=== PATIENT | male | born 1960 | race Caucasian/White ===

== ENCOUNTER → 2020-05-05 11:06 | Outpatient (BNVA) | payer OTHER, SELFPAY | PROVIDERS: Visit Provider Internal Medicine | DX: Z76.89 Persons encountering health services in other specified circumstances (principal) ==

== ENCOUNTER 2020-05-10 08:11 | Outpatient (REF) | payer OTHER, SELFPAY ==
[2020-05-10 09:54] LABS: Hematocrit 47.8 % (42-52); Hemoglobin 16.1 g/dl (14.0-18.0)
[2020-05-10 11:37] LABS: Free T4 (Free Thyroxine) 1.13 ng/dL (0.71-1.85); Prostate Specific Antigen 1.33 ng/mL (<0.05-4.0); Thyroid Stimulating Hormone 1.45 mIU/mL (0.32-4.0); Vitamin D 25-OH Total 27.2 ng/mL (>30)
[2020-05-11 12:51] LABS: HCG Tumor Marker <3 mIU/mL (<5); Triiodothyronine T3 Total 134 ng/dL (76-181)
[2020-05-12 01:37] LABS: Sex Hormone Binding Globulin 25 nmol/L (22-77)
[2020-05-12 08:57] LABS: Follicle Stimulating Hormone 4.7 mIU/mL (1.6-8.0); Lutenizing Hormone 4.5 mIU/mL (1.6-15.2); Prolactin 5.7 ng/mL (2.0-18.0)
[2020-05-14 23:37] LABS: Estradiol, Ultrasensitive 40 pg/mL
[2020-05-15 00:47] LABS: Estradiol Ultra Sensitive 41 pg/mL (< OR = 29)
[2020-05-15 13:31] LABS: Testosterone, Free 68.8 pg/mL (35.0-155.0); Testosterone, Total 339 ng/dL (250-1100)
== END 2020-05-10 08:12 | disposition home or self-care (01) ==
LOC: HO.LAB 08:11
PROVIDERS: PCP Physician Assistant; Visit Provider Internal Medicine
DX: R79.89 Other specified abnormal findings of blood chemistry (principal); E04.9 Nontoxic goiter, unspecified
CPT/HCPCS: 36415; 82306; 82670; 82672; 83001; 83002; 84146; 84153; 84270; 84402; 84403; 84439; 84443; 84480; 84702; 85014; 85018

== ENCOUNTER 2020-06-07 16:05 | Outpatient (REF) | payer OTHER, SELFPAY ==
[2020-06-07 17:12] LABS: Alanine Aminotransferase 61 U/L (0-40); Albumin Level 4.5 g/dL (3.5-5.0); Alkaline Phosphatase 58 U/L (39-117); Anion Gap 14 (12-20); Aspartate Amino Transferase 34 U/L (5-37); Bilirubin Total 0.4 mg/dL (0.0-1.0); Blood Urea Nitrogen 16 mg/dL (9-16); Calcium 9.3 mg/dL (8.4-10.2); Carbon Dioxide 27 mmol/L (22-29); Chloride 101 mmol/L (96-108); Cholesterol 198 mg/dL; Estimated Glomerular Filt Rate > 60; Glucose Fasting 82 mg/dL (60-99); HDL Cholesterol 48 mg/dL; LDL Cholesterol Calculated 88 mg/dl; Potassium 4.2 mmol/l (3.3-5.1); Sodium 138 mmol/L (135-145); Total Protein 7.1 g/dL (6.5-8.0); Triglycerides 311 mg/dL
[2020-06-07 17:24] LABS: TSH reflex Free T4 2.07 mIU/mL (0.32-4.0)
== END 2020-06-07 16:06 | disposition home or self-care (01) ==
LOC: HO.LAB 16:05
PROVIDERS: Internal Medicine; PCP Physician Assistant; Visit Provider Internal Medicine Medical Oncology
DX: E78.2 Mixed hyperlipidemia (principal); R79.89 Other specified abnormal findings of blood chemistry
CPT/HCPCS: 80053; 80061; 84443

== ENCOUNTER 2020-06-09 08:05 | Outpatient (REF) | payer OTHER, SELFPAY ==
--- NOTE | 2020-06-09 08:06 | CT_ITS ---
EXAMINATION: CT ABDOMEN AND PELVIS WITHOUT AND WITH CONTRAST CLINICAL INFORMATION: Evaluate liver and adrenal glands COMPARISON: Previous abdominal ultrasound February 2012 TECHNIQUE: Multidetector volumetric imaging was performed of the abdomen and pelvis before and after the IV administration of 85 mL of Omnipaque 350 intravenous contrast. Sagittal and coronal reformatted images were obtained on the technologist's workstation. This CT examination was performed using dose optimization techniques as appropriate, variously including the following: *Automated exposure control *Adjustment of mA and/or kV according to patient size (this includes techniques or standardized protocols for targeted exams where dose is matched to indication/reason for exam; i.e. extremities or head) *Use of iterative reconstruction technique DLP: 07/16/2008 mGy-cm FINDINGS: LUNG BASES: There are 2 small 2 mm left lower lobe pulmonary nodules. The lung bases are otherwise clear. LIVER, GALLBLADDER, AND BILIARY TREE: The liver is low in attenuation suggestive of fatty infiltration. No focal liver lesion is seen. The liver is normal in size and shape. There is a gallstone in the gallbladder. There is no biliary duct dilatation. PANCREAS: Unremarkable SPLEEN: Unremarkable ADRENAL GLANDS: Unremarkable KIDNEYS AND URETERS: There are bilateral renal stones. There are 5 stones seen in the right kidney, largest measuring 3 x 4 mm in the lower pole. There are 3 stones seen in the left kidney, largest measuring 3 mm in the lower pole. There is a 5 mm low-attenuation lesion in the upper pole of the right kidney. This is is not well-seen precontrast difficult to characterize due to small size but probably represents a cyst. The kidneys are otherwise unremarkable. BLADDER: Unremarkable GASTROINTESTINAL TRACT: There is mild diverticulosis of the colon. The small and large bowel are otherwise unremarkable. The appendix is unremarkable. ABDOMINAL WALL: No significant hernia is appreciated. LYMPH NODES: Normal VASCULAR: There is evidence of mild atherosclerotic disease. No aneurysm is seen. PELVIC VISCERA: Unremarkable OSSEOUS STRUCTURES: There are mild degenerative changes of the spine. CT/CT abdomen pelvis wo/w con IMPRESSION: Fatty liver. Small gallstone in the gallbladder. Bilateral renal stones. Normal-appearing adrenal glands.
--- NOTE | 2020-06-09 08:18 | US_ITS ---
EXAMINATION: US THYROID CLINICAL INFORMATION: Nontoxic goiter, unspecified. COMPARISON: None TECHNIQUE: Linear transducer boateng-scale and color Doppler examination with attention to the region of the thyroid. FINDINGS: SIZE: Measurements of the thyroid lobes and nodules are given in sagittal, anteroposterior and transverse dimensions respectively. Right Thyroid Lobe: 4.7 x 2.0 x 2.3 cm, volume 11.3 mL. Parenchyma: The gland echotexture is homogeneous. Thyroid vascularity is normal. Left Thyroid Lobe: 4.8 x 1.9 x 1.7 cm, volume 8.1 mL. Parenchyma: The gland echotexture is homogeneous. Thyroid vascularity is normal. Isthmus: 0.2 cm in maximum AP dimension. RIGHT THYROID LOBE: No nodules. ISTHMUS: No nodules. LEFT THYROID LOBE: No nodules. NODES: No lymphadenopathy is seen in the tissue surrounding the thyroid gland. US/US thyroid IMPRESSION: Slightly enlarged right lobe otherwise unremarkable exam.
--- NOTE | 2020-06-09 09:17 | US_ITS ---
EXAMINATION: US SCROTUM CLINICAL INFORMATION: Other specified abnormal findings of blood chemistry. COMPARISON: None TECHNIQUE: A sonogram of the scrotum was performed assessing boateng-scale appearance and color Doppler flow. Spectral Doppler analysis of the arterial and venous flow were performed in the testes bilaterally. FINDINGS: RIGHT: Right testicle measures 3.4 x 2.3 x 2.7 cm, volume 11.0 mL. No focal testicular parenchymal lesions are visualized. Spectral Doppler analysis of the arterial and venous flow is normal in the right testis. Right epididymal head is normal in size. There is a right appendix epididymis. No right hydrocele or varicocele is seen. Right epididymal Doppler flow is normal. LEFT: Left testicle measures 3.3 x 1.8 x 2.7 cm, volume 8.4 mL. No focal testicular parenchymal lesions are visualized. Spectral Doppler analysis of the arterial and venous flow is normal in the left testis. There is a 1.7 x 1.1 x 0.9 cm left epididymal head cyst. No left hydrocele or varicocele is seen. Left epididymal Doppler flow is normal. US/US scrotum IMPRESSION: 1.7 x 1.1 x 0.9 cm left epididymal head cyst.
[2020-06-09] MEDS: iohexoL 350 MG/ML 100 ML INFUS..BTL 85 ML IV (09:38)
== END 2020-06-09 08:06 | disposition home or self-care (01) ==
LOC: HO.CT 08:05
PROVIDERS: PCP Physician Assistant; Visit Provider Internal Medicine
DX: E04.9 Nontoxic goiter, unspecified (principal); R79.89 Other specified abnormal findings of blood chemistry
CPT/HCPCS: 74178; 76536; 76870; Q9967

== ENCOUNTER → 2020-06-17 08:02 | Outpatient (BNVA) | payer OTHER, SELFPAY | PROVIDERS: PCP Physician Assistant; Referring Provider Physician Assistant; Visit Provider Internal Medicine | DX: Z76.89 Persons encountering health services in other specified circumstances (principal) ==

== ENCOUNTER 2020-06-21 08:27 | Outpatient (REF) | payer OTHER, SELFPAY ==
[2020-06-21 10:31] LABS: Albumin Level 4.4 g/dL (3.5-5.0); Blood Urea Nitrogen 12 mg/dL (9-16); Calcium 9.5 mg/dL (8.4-10.2); Estimated Glomerular Filt Rate > 60
[2020-06-21 10:46] LABS: Vitamin D 25-OH Total 24.2 ng/mL (>30)
[2020-06-22 17:53] LABS: Sex Hormone Binding Globulin 25 nmol/L (22-77)
[2020-06-22 22:38] LABS: Calcium (PTHI) 9.5 mg/dL (8.6-10.3); PTHI 23 pg/mL (14-64)
[2020-06-23 13:27] LABS: Alpha Fetoprotein 3.1 ng/mL (<6.1)
[2020-06-25 10:42] LABS: Testosterone, Free 49.5 pg/mL (35.0-155.0); Testosterone, Total 229 ng/dL (250-1100)
[2020-06-25 22:53] LABS: Estradiol Ultra Sensitive 32 pg/mL (< OR = 29)
[2020-06-29 16:47] LABS: Estrogen 216.6 pg/mL (60-190)
[2020-06-30 22:58] LABS: Estradiol Free 0.61 pg/mL; Estradiol, Ultrasensitive 27 pg/mL
== END 2020-06-21 08:28 | disposition home or self-care (01) ==
LOC: HO.LAB 08:27
PROVIDERS: PCP Physician Assistant; Visit Provider Internal Medicine
DX: N20.0 Calculus of kidney (principal); R79.89 Other specified abnormal findings of blood chemistry; N50.89 Other specified disorders of the male genital organs; E55.9 Vitamin D deficiency, unspecified
CPT/HCPCS: 82040; 82105; 82306; 82310; 82565; 82670; 82672; 83970; 84100; 84270; 84402; 84403; 84520

== ENCOUNTER → 2020-06-23 08:48 | Outpatient (BNVA) | payer OTHER, SELFPAY | PROVIDERS: PCP Physician Assistant; Visit Provider Urology | DX: Z76.89 Persons encountering health services in other specified circumstances (principal) ==

== ENCOUNTER 2020-06-25 09:01 | Outpatient (REF) | payer OTHER, SELFPAY ==
[2020-06-25 12:06] LABS: Total Volume 24 Hour Urine 825 mL
[2020-06-26 17:33] LABS: Calcium, 24 Hr Urine 123 mg/24 h; Calcium/Creatinine Ratio 121 mg/g creat (30-210); Creatinine 24Hr Urine 1.01 g/24 h (0.50-2.15)
== END 2020-06-25 09:02 | disposition home or self-care (01) ==
LOC: HO.LNP 09:01
PROVIDERS: Visit Provider Internal Medicine
DX: N20.0 Calculus of kidney (principal)
CPT/HCPCS: 82340; 82570

== ENCOUNTER → 2020-07-15 08:59 | Outpatient (BNVA) | payer OTHER, SELFPAY | PROVIDERS: PCP Physician Assistant; Visit Provider Internal Medicine | DX: Z13.89 Encounter for screening for other disorder (principal) ==

== ENCOUNTER → 2020-07-22 14:34 | Outpatient (BNVA) | payer OTHER, SELFPAY | PROVIDERS: PCP Physician Assistant; Visit Provider Internal Medicine | DX: Z76.89 Persons encountering health services in other specified circumstances (principal) ==

== ENCOUNTER 2020-09-20 07:42 | Outpatient (REF) | payer OTHER, SELFPAY ==
[2020-09-20 09:15] LABS: Alanine Aminotransferase 72 U/L (0-40); Albumin Level 4.5 g/dL (3.5-5.0); Alkaline Phosphatase 65 U/L (39-117); Anion Gap 13 (12-20); Aspartate Amino Transferase 36 U/L (5-37); Bilirubin Total 0.5 mg/dL (0.0-1.0); Blood Urea Nitrogen 17 mg/dL (9-16); Carbon Dioxide 30 mmol/L (22-29); Chloride 102 mmol/L (96-108); Estimated Glomerular Filt Rate > 60; Glucose Random 95 mg/dL (60-115); Potassium 4.8 mmol/L (3.3-5.1); Sodium 140 mmol/L (135-145); Total Protein 7.1 g/dL (6.5-8.0)
[2020-09-20 09:37] LABS: Vitamin D 25-OH Total 30.6 ng/mL (>30)
[2020-09-23 12:27] LABS: Sex Hormone Binding Globulin 31 nmol/L (22-77)
[2020-09-25 21:27] LABS: Estradiol Ultra Sensitive 37 pg/mL (< OR = 29)
[2020-09-26 11:21] LABS: Testosterone, Free 47.2 pg/mL (35.0-155.0); Testosterone, Total 299 ng/dL (250-1100)
[2020-09-30 00:06] LABS: Estradiol Free 0.75 pg/mL; Estradiol, Ultrasensitive 36 pg/mL
== END 2020-09-20 07:43 | disposition home or self-care (01) ==
LOC: HO.LAB 07:42
PROVIDERS: PCP Physician Assistant; Visit Provider Internal Medicine
DX: R79.89 Other specified abnormal findings of blood chemistry (principal); E55.9 Vitamin D deficiency, unspecified
CPT/HCPCS: 36415; 80053; 82306; 82670; 82672; 82681; 84270; 84402; 84403

== ENCOUNTER → 2020-10-21 11:13 | Outpatient (BNVA) | payer OTHER, SELFPAY | PROVIDERS: PCP Physician Assistant; Visit Provider Internal Medicine ==

== ENCOUNTER 2020-10-22 08:04 | Outpatient (REF) | payer OTHER, SELFPAY ==
[2020-10-22 09:05] LABS: Hematocrit 47.4 % (42-52); Hemoglobin 16.2 g/dl (14.0-18.0); Mean Corpuscular HGB Conc 34.2 g/dl (31.0-36.0); Mean Corpuscular Hemoglobin 29.3 pg (27.0-33.0); Mean Corpuscular Volume 85.9 fL (80-98); Mean Platelet Volume 8.8 fL (9.4-12.4); Platelet Count 253 X10*3/uL (160-400); Red Blood Count 5.52 X10*6/uL (4.60-5.80); Red Cell Distribution Width 12.7 % (11.0-16.0); White Blood Count 5.9 X10*3/uL (4.8-10.8)
[2020-10-22 09:43] LABS: Alanine Aminotransferase 95 U/L (0-40); Albumin Level 4.6 g/dL (3.5-5.0); Alkaline Phosphatase 61 U/L (39-117); Anion Gap 13 (12-20); Aspartate Amino Transferase 61 U/L (5-37); Bilirubin Total 0.2 mg/dL (0.0-1.0); Blood Urea Nitrogen 13 mg/dL (9-16); Calcium 9.6 mg/dL (8.4-10.2); Carbon Dioxide 30 mmol/L (22-29); Chloride 101 mmol/L (96-108); Cholesterol 189 mg/dL; Estimated Glomerular Filt Rate > 60; Glucose Fasting 100 mg/dL (60-99); HDL Cholesterol 52 mg/dL; LDL Cholesterol Calculated 103 mg/dl; Potassium 4.8 mmol/L (3.3-5.1); Sodium 139 mmol/L (135-145); Total Protein 7.2 g/dL (6.5-8.0); Triglycerides 173 mg/dL
[2020-10-22 10:04] LABS: Prostate Specific Antigen Scr 1.31 ng/mL (<0.05-4.0)
== END 2020-10-22 08:05 | disposition home or self-care (01) ==
LOC: HO.LAB 08:04
PROVIDERS: PCP Physician Assistant; Visit Provider Physician Assistant
DX: I10 Essential (primary) hypertension (principal); E78.2 Mixed hyperlipidemia; Z12.5 Encounter for screening for malignant neoplasm of prostate
CPT/HCPCS: 36415; 80053; 80061; 84153; 84443; 85027

== ENCOUNTER 2020-12-01 08:40 | Outpatient (REF) | payer OTHER, SELFPAY ==
--- NOTE | ~2020-12-01 | US_ITS ---
EXAMINATION: US RETROPERITONEAL LIMITED (RENAL ONLY) CLINICAL INFORMATION: Calculus of kidney. COMPARISON: CT abdomen and pelvis without and with contrast dated 06/09/2020 TECHNIQUE: Real-time imaging of the kidneys. FINDINGS: RIGHT KIDNEY: 11.2 x 5.4 x 6.0 cm (SAG x AP x TRV). The kidney is normal in size, contour, and echogenicity. Renal cortical thickness is normal. No focal parenchymal lesions or hydronephrosis. There is an echogenic stone in the midpole measuring 0.4 x 0.2 x 0.3 cm. An echogenic stone in the lower pole measures 0.6 x 0.3 x 0.7 cm. LEFT KIDNEY: 13.0 x 5.8 x 5.0 cm (SAG x AP x TRV). The kidney is normal in size, contour, and echogenicity. Renal cortical thickness is normal. No focal parenchymal lesions or hydronephrosis. There is an echogenic stone in the lower pole measuring 0.7 x 0.7 x 0.6 cm. There is an echogenic stone in the midpole measuring 0.3 x 0.2 x 0.4 cm. US/US renal BI IMPRESSION: Bilateral nonobstructive echogenic renal calculi. There is no hydronephrosis seen.
== END 2020-12-01 08:41 | disposition home or self-care (01) ==
LOC: HO.US 08:40
PROVIDERS: Visit Provider Urology
DX: N20.0 Calculus of kidney (principal)
CPT/HCPCS: 76775

== ENCOUNTER → 2021-02-18 08:54 | Outpatient (BNVA) | payer BC, SELFPAY | PROVIDERS: PCP Physician Assistant; Visit Provider Urology ==

== ENCOUNTER → 2021-03-02 08:31 | Outpatient (BNVA) | payer BC, SELFPAY | PROVIDERS: PCP Physician Assistant; Visit Provider Internal Medicine ==

== ENCOUNTER 2021-03-04 13:04 | Outpatient (REF) | payer BC, SELFPAY ==
--- NOTE | ~2021-03-04 | US_ITS ---
EXAMINATION: US VENOUS ULTRASOUND WITH DOPPLER LOWER EXTREMITY, LEFT CLINICAL INFORMATION: Left lower extremity pain and swelling COMPARISON: None TECHNIQUE: Ultrasound of the deep veins is performed from the hip to the calf with compression sonography and color and pulse Doppler assessment. Spectral analysis with color-flow imaging is performed. FINDINGS: There is normal venous compression and respiratory variation and augmented flow. The visualized common femoral vein, superficial femoral vein, profunda femoral vein, popliteal vein, and the trifurcation region shows no evidence of deep venous thrombosis. There is no significant popliteal fossa cyst. If the patient's symptoms persist, followup ultrasound in 5 days 7 days might be of value to exclude proximal propagation from a non-visualized calf vein. US/US venous duplex LE LT IMPRESSION: No DVT demonstrated in the left lower extremity.
== END 2021-03-04 13:05 | disposition home or self-care (01) ==
LOC: HO.HMGCX 13:04
PROVIDERS: PCP Physician Assistant; Visit Provider Physician Assistant
DX: M79.662 Pain in left lower leg (principal); M79.89 Other specified soft tissue disorders
CPT/HCPCS: 93971

== ENCOUNTER 2021-04-20 06:22 | Day surgery (SDC) | payer BC, SELFPAY ==
--- NOTE | 2021-03-15 09:33 | HO.ANESPROP2 ---
HPI - Anesthesia Eval Consult details Narrative: 60yo M for Left ESWL No prev ESWL on record PMFSH Active Problems Active Problems: All Active Problems (Updated 03/03/21 @ 09:36 by Scott Tejada PA-C) Left leg swelling (Acute) Left leg paresthesias (Acute) Transaminitis (Acute) Screening-pulmonary TB (Acute) Allergies (Acute) Lung nodules (Acute) Renal mass (Acute) Pulmonary nodule (Acute) Nephrolithiasis (Acute) Epididymal mass (Acute) HLD (hyperlipidemia) (Acute) MDD (major depressive disorder) (Acute) Goiter (Acute) Vitamin D deficiency (Acute) High serum estradiol (Acute) HTN (hypertension) (Acute) Past Medical History Medical History Allergies Depression Epididymal mass High serum estradiol HTN (hypertension) Lung nodules Nephrolithiasis Pulmonary nodule Renal mass Transaminitis Vitamin D deficiency Family History Family History (Updated 03/03/21 @ 09:22 by Dena Landaverde) Father Diabetes mellitus Mother No problems noted. Maternal Aunt Cancer Maternal Grandfather Prostate cancer Maternal Grandfather Substance use disorder Surgical History Surgical History Hx of basal cell carcinoma Hx of shoulder surgery Social History Social History Household Members: None Housing: House Alcohol intake: current Alcohol intake frequency: does not drink Patient Tobacco Use Status: Never used Tobacco e-Cigarette/Vaping Use: Never Used Second Hand Smoke Exposure: No service: No Current occupational status: employed Meds Allergies Allergy/AdvReac Type Severity Reaction Status Date / Time codeine Allergy Unknown Unknown Verified 03/03/21 09:28 Home Medications Medication Instructions Recorded Confirmed Last Taken Type omega-3 fatty acids 1,000 mg 1,000 mg PO DAILY 05/05/20 03/03/21 Unknown History capsule (Fish Oil Concentrate) multivitamin 1 tab PO DAILY 06/17/20 03/03/21 Unknown History flu vac qs 2019(4 yr up)CD(PF) ml IM 07/22/20 03/03/21 Unknown History rosuvastatin 20 mg tablet 20 mg PO DAILY tab 10/21/20 03/03/21 Unknown History loratadine 10 mg tablet (Claritin) 10 mg PO DAILY PRN 03/02/21 03/03/21 Unknown History Exam Exam Date and Time: March 15, 2021 0912 Pertinent Lab Results Pertinent Lab Results: Laboratory Tests 10/22/20 10/22/20 08:10 08:10 WBC 5.9 Hgb 16.2 Hct 47.4 Plt Count 253 Sodium 139 Potassium 4.8 Chloride 101 Carbon Dioxide 30 H BUN 13 Creatinine 1.08 Assessment and Plan Assessment Anesthesia Assessment: Chart Reviewed
[2021-04-14 13:35] VITALS: BMI 29.9
--- NOTE | 2021-04-19 11:00 | HO.ANESPROP2 ---
Documented by User: Latoya Campbell NP 04/19/21 11:01 HPI - Anesthesia Eval Consult details Narrative: 60yo M for Left ESWL No prev ESWL on record PMFSH Active Problems Active Problems: All Active Problems (Updated 04/14/21 @ 13:39 by Destini Goodman, RONEL) Goiter (Acute) MDD (major depressive disorder) (Acute) HLD (hyperlipidemia) (Acute) Screening-pulmonary TB (Acute) Left leg paresthesias (Acute) Left leg swelling (Acute) Annual physical exam (Acute) Obese (Acute) Transaminitis (Acute) Allergies (Acute) Lung nodules (Acute) Renal mass (Acute) Pulmonary nodule (Acute) Nephrolithiasis (Acute) Epididymal mass (Acute) Vitamin D deficiency (Acute) High serum estradiol (Acute) HTN (hypertension) (Acute) Past Medical History Medical History Allergies COVID-19 vaccine series completed Depression Epididymal mass Fatty liver Heart murmur High serum estradiol History of Amanda-Del Castillo virus infection HTN (hypertension) Lung nodules Nephrolithiasis Pulmonary nodule Renal calculi Renal mass Transaminitis Vitamin D deficiency Family History Family History Father Diabetes mellitus Mother No problems noted. Maternal Aunt Cancer Maternal Grandfather Prostate cancer Maternal Grandfather Substance use disorder Surgical History Surgical History H/O colonoscopy Hx of basal cell carcinoma Hx of shoulder surgery Social History Social History Household Members: None Housing: House Are you a primary critical care physician assistant to a significant other at home: No Do you presently have visiting nurse or other home services: No Alcohol intake: current Alcohol intake frequency: holidays/special occasions only Patient Tobacco Use Status: Never used Tobacco e-Cigarette/Vaping Use: Never Used Second Hand Smoke Exposure: No Use of substances other than those prescribed or required for medical reasons: No Have you been hit, kicked, punched, or otherwise hurt by someone within the past year? If so, by whom?: No Are you DNR?: No Advance Directives: No Advance Directives Information Provided: Yes (informational brochure mailed w/pre-op instructions per patient request) Advance Directives on File: No Recently lost weight without trying: No Nutrition Risks: No Nutritional Risk Poor oral hygiene: No service: No Current occupational status: employed Current occupation: [employer] Allergies Allergy/AdvReac Type Severity Reaction Status Date / Time codeine AdvReac Intermediate Vomiting Verified 04/14/21 13:35 Home Medications Medication Instructions Recorded Confirmed Last Taken Type omega-3 fatty acids 1,000 mg 1,000 mg PO DAILY 05/05/20 04/14/21 Unknown History capsule (Fish Oil Concentrate) multivitamin 1 tab PO DAILY 06/17/20 04/14/21 Unknown History flu vac qs 2019(4 yr up)CD(PF) ml IM 07/22/20 03/31/21 Unknown History rosuvastatin 20 mg tablet 20 mg PO QAM tab 10/21/20 04/14/21 Unknown History loratadine 10 mg tablet (Claritin) 10 mg PO DAILY PRN 03/02/21 04/14/21 Unknown History Exam Exam Date and Time: April 19, 2021 1100 Height,Weight and Vital Signs: Height 5 ft 5 in Weight 81.647 kg Assessment and Plan Assessment Anesthesia Assessment: Chart Reviewed Documented by User: Lily Muller MD 04/20/21 07:53 [facility] Past Medical History Medical History Allergies COVID-19 vaccine series completed Depression Epididymal mass Fatty liver Heart murmur High serum estradiol History of Amanda-Del Castillo virus infection HTN (hypertension) Lung nodules Nephrolithiasis Pulmonary nodule Renal calculi Renal mass Transaminitis Vitamin D deficiency Family History Family History Father Diabetes mellitus Mother No problems noted. Maternal Aunt Cancer Maternal Grandfather Prostate cancer Maternal Grandfather Substance use disorder Family history of problems with anesthesia: No Surgical History Surgical History H/O colonoscopy Hx of basal cell carcinoma Hx of shoulder surgery History of Problems with Anesthesia: No Social History Social History Household Members: None Housing: House Are you a primary critical care physician assistant to a significant other at home: No Do you presently have visiting nurse or other home services: No Alcohol intake: current Alcohol intake frequency: holidays/special occasions only Patient Tobacco Use Status: Never used Tobacco e-Cigarette/Vaping Use: Never Used Second Hand Smoke Exposure: No Use of substances other than those prescribed or required for medical reasons: No Have you been hit, kicked, punched, or otherwise hurt by someone within the past year? If so, by whom?: No Are you DNR?: No Advance Directives: No Advance Directives Information Provided: Yes (informational brochure mailed w/pre-op instructions per patient request) Advance Directives on File: No Recently lost weight without trying: No Nutrition Risks: No Nutritional Risk Poor oral hygiene: No service: No Current occupational status: employed Current occupation: [employer] Allergies Allergy/AdvReac Type Severity Reaction Status Date / Time codeine AdvReac Intermediate Vomiting Verified 04/14/21 13:35 Home Medications Medication Instructions Recorded Confirmed Last Taken Type omega-3 fatty acids 1,000 mg 1,000 mg PO DAILY 05/05/20 04/14/21 Unknown History capsule (Fish Oil Concentrate) multivitamin 1 tab PO DAILY 06/17/20 04/14/21 Unknown History flu vac qs 2019(4 yr up)CD(PF) ml IM 07/22/20 03/31/21 Unknown History rosuvastatin 20 mg tablet 20 mg PO QAM tab 10/21/20 04/14/21 Unknown History loratadine 10 mg tablet (Claritin) 10 mg PO DAILY PRN 03/02/21 04/14/21 Unknown History Exam Airway Mallampati Class: II TM Dist: >3cm Neck ROM: Full Assessment and Plan Assessment Anesthesia Assessment: Anesthesia Plan Discussed Final Anesthetic Review Family History of Problems with Anesthesia: No History of Problems with Anesthesia: No NPO: Yes ASA Class: II Final Preanesthetic Review: No Changes in Pt Med Stat, Meds/Allgs Chart Reviewed, Consent Obtained/Reviewed and Anes Risks/Benef Reviewed Patient Risk: Low Procedure Risk: Low Assessment/Block/Sedation in SS: Assess/Block/Sedation-SS Anesthetic Plan Anesthetic Plan: MAC: Disposition: Standard PACU
--- NOTE | ~2021-04-20 | XR_ITS ---
EXAMINATION: XR ABDOMEN KUB CLINICAL INDICATION: Left renal stones. COMPARISON: Renal ultrasound dated 12/01/2020; CT abdomen and pelvis dated 06/09/2020; KUB dated 07/03/2012. TECHNIQUE: 2 AP views of the abdomen and pelvis are submitted. FINDINGS: The bowel gas pattern is normal with no evidence of ileus or obstruction. At the lower pole of the right kidney, a 7 mm calculus is seen. At the lower pole of the left kidney, a 5 mm calculus is seen. No further urinary calculus is seen with certainty. The bones are unremarkable. XR/XR KUB IMPRESSION: Bilateral renal calculi are noted, as above.
[2021-04-20 07:06] VITALS: BP 132/71; PULSE 85; RESP 16; TEMP 36.2; O2SAT 97
[2021-04-20] MEDS: Lactated Ringers 1,000 ML 100 ML IVCONT (07:12)
--- NOTE | 2021-04-20 07:42 | MHC.SHP ---
Pre-Procedural Eval Section A Date of Service: 04/20/21 Section B Chief Complaint: calculus of kidney Details of Present Illness: left renal styones Relevant Family History (Specify if Yes): No Relevant Social History: None Present Medications: see Short Stay Collaborative assessment Medical History: No relevant PMH History of Previous Operations: No relevant previous surgery Allergies: Allergies Allergy/AdvReac Type Severity Reaction Status Date / Time codeine AdvReac Intermediate Vomiting Verified 04/14/21 13:35 Review of Systems Sugical H&P ROS: Negative: Constitution, Cardiovascular, Respiratory, Neurological, Psychiatric, Hem-Onc, Allergic/Immunologic, Gastrointestinal, Genitourinary, Musculoskeletal, Integumentary, Endocrine and Eyes/Ears/Nose/Throat Exam Surgical H&P Exam: Normal: HEENT, Normal: Heart, Normal: Lungs, Normal: Extremities, Normal: Abdomen, Normal: Skin and Normal: Neurological Plan Diagnosis/Plan: Unchanged (left renal ESWL) I have reviewed the history and physical and performed a pertinent physical examination on my patient. No changes have occurred unless specified.
--- NOTE | 2021-04-20 08:29 | W.PM.OPN ---
Operative Note Operative Note Date of Service: 04/20/21 Narrative: PreOperative Diagnosis: Left Renal stones Post Operative Diagnosis: Left Renal stones Procedure: Left ESWL Surgeon: Dr Wade Almanza Anesthesia: mac/sedation Indications for procedure: The patient understands ESWL may be a staged procedure and subsequent intervention may be required based on imaging after ESWL. They also understand there is a risk of bleeding to the kidney, infection, damage to adjacent organs, and stone migration following the procedure. - 7mm left stone (has bilateral stones) Procedure: After informed consent was verified the patient was brought to the operating room and placed in a supine position. Anesthesia was performed per protocol. Safety pause time-out was performed. Imaging was displayed in the room and laterality confirmed. ESWL was performed. The 1st 500 shocks were performed at 60 hertz. These were performed with increasing power. Once maximum power was reached the rate was increased to 180 hertz. A total of 2500 shocks were given. Targetted imaging with ultrasound/fluoroscopy showed stone smudging suggestive of disintegration. The patient tolerated the procedure well and was transferred to the recovery area upon completion. Post procedure imaging will be organized. There was no evidence for flank discoloration.
[2021-04-20 08:53] VITALS: BP 135/81; PULSE 101; RESP 16; TEMP 36.7; O2SAT 95
[2021-04-20 09:09] VITALS: BP 142/94; PULSE 88; RESP 16; O2SAT 97
[2021-04-20] MEDS: Phenazopyridine HCL 100 MG TABLET PO (09:09)
[2021-04-20] MEDS: Acetaminophen 325 MG TABLET 650 MG PO (09:09)
[2021-04-20 09:24] VITALS: BP 153/95; PULSE 83; RESP 16; TEMP 36.7; O2SAT 96
--- NOTE | 2021-04-20 09:53 | PC.NURSE ---
PATIENT GIVEN FILTER, ETC., TO COLLECT A STONE.
== END 2021-04-20 10:29 ==
LOC: HO.SSS 06:22
PROVIDERS: PCP Physician Assistant; Visit Provider Urology
PROC: (CPT 50590; principal; 2021-04-20 08:00)
DX: N20.0 Calculus of kidney (principal); Z87.442 Personal history of urinary calculi; N50.3 Cyst of epididymis; I10 Essential (primary) hypertension; R91.8 Other nonspecific abnormal finding of lung field; E55.9 Vitamin D deficiency, unspecified; Z79.899 Other long term (current) drug therapy; Z88.8 Allergy status to other drugs, medicaments and biological substances; Z85.828 Personal history of other malignant neoplasm of skin
CPT/HCPCS: 50590; 74018; J1885; J2250; J2405; J3010

== ENCOUNTER → 2021-05-02 12:53 | Outpatient (BNVA) | payer BC, SELFPAY | PROVIDERS: PCP Physician Assistant; Referring Provider Physician Assistant; Visit Provider Nurse Practitioner Family ==

== ENCOUNTER 2021-05-10 15:24 | Outpatient (REF) | payer BC, SELFPAY ==
--- NOTE | ~2021-05-10 | US_ITS ---
EXAMINATION: US RETROPERITONEAL LIMITED (RENAL ONLY) CLINICAL INFORMATION: Calculus of kidney. COMPARISON: Renal ultrasound 12/01/2020. KUB 04/20/2021. CT abdomen and pelvis 06/09/2020. TECHNIQUE: Real-time imaging of the kidneys. FINDINGS: RIGHT KIDNEY: 12.0 x 6.3 x 6.0 cm (SAG x AP x TRV). The kidney is normal in size, contour, and echogenicity. Renal cortical thickness is normal. There are small stones measuring 2 to 3 mm in the upper and lower pole. These appear decreased in size from prior exam. No focal parenchymal lesions or hydronephrosis. LEFT KIDNEY: 12.5 x 6.0 x 5.5 cm (SAG x AP x TRV). The kidney is normal in size, contour, and echogenicity. Renal cortical thickness is normal. There are small stones measuring 2 to 3 mm in the mid and lower pole. These appear decreased in size from previous exam No focal parenchymal lesions or hydronephrosis. US/US renal BI IMPRESSION: Small bilateral renal stones decrease in size from previous exam.
== END 2021-05-10 15:25 | disposition home or self-care (01) ==
LOC: HO.HMGCX 15:24
PROVIDERS: PCP Physician Assistant; Visit Provider Urology
DX: N20.0 Calculus of kidney (principal)
CPT/HCPCS: 76775

== ENCOUNTER 2021-05-12 10:07 | Outpatient (REF) | payer BC, SELFPAY ==
--- NOTE | 2021-05-12 10:09 | EMG_ITS ---
Left tibial and peroneal motor studies were performed. Left superficial peroneal and sural sensory studies were performed. Tibial H-reflex was obtained and paraspinal muscles were tested with a needle. IMPRESSION: This study did not reveal any significant abnormality. MD NATALY Lomax/REGINA / [id number]
== END 2021-05-12 10:08 | disposition home or self-care (01) ==
LOC: HO.NEURO 10:07
PROVIDERS: Visit Provider Physician Assistant
DX: R20.2 Paresthesia of skin (principal)
CPT/HCPCS: 95886; 95909

== ENCOUNTER 2021-05-16 08:42 | Outpatient (REF) | payer BC, SELFPAY ==
--- NOTE | ~2021-05-16 | US_ITS ---
EXAMINATION: US COMPLETE ABDOMEN WITH LIVER ELASTOGRAPHY CLINICAL INFORMATION: Abnormal liver function tests COMPARISON: Previous CT of the abdomen and pelvis May 2020 and abdominal ultrasound February 2012 TECHNIQUE: Real-time imaging of the abdominal viscera. Noninvasive ultrasound liver fibrosis assessment is performed using Shavonne ElastPQ point quantification shear wave elastography (pSWE) with a C5-2 MHz transducer. Multiple elastography samples are obtained. FINDINGS: PANCREAS: Not visualized due to bowel gas ABDOMINAL AORTA: Not well visualized due to bowel gas. INFERIOR VENA CAVA: Not well visualized due to bowel gas. LIVER: Liver echotexture is increased. There is a hypoechoic area adjacent to the gallbladder, a characteristic location of focal fatty sparing. No other focal lesion or intrahepatic biliary duct dilatation. The liver is normal in contour. The liver is normal in size. The right lobe measures 14 cm in length. The left lobe measures 12 cm in length. Portal flow is normal/hepatopedal Shear wave liver elastography median stiffness is 1.6 m/s (reference: normal median stiffness is 1.3 m/s or less). IQR/median stiffness to assess sampling precision is 0.31 (reference: good quality data set is IQR/median stiffness of 0.15 or less). GALLBLADDER: Normal. The gallbladder is physiologically distended without evidence of stones, sludge, polyps, wall thickening or pericholecystic fluid. COMMON BILE DUCT: Normal in caliber measuring 0.6 cm in diameter. RIGHT KIDNEY: There are 3 stones in the mid and lower pole, largest measuring 4 mm. No hydronephrosis. No renal calculi or focal parenchymal lesions. The kidney measures 10 cm in maximum dimension. LEFT KIDNEY: There are 2 stones in the lower pole measuring 7 and 3 mm. No hydronephrosis. No renal calculi or focal parenchymal lesions. The kidney measures 12 cm in maximum dimension. SPLEEN: Normal. The spleen measures 11 cm in maximum dimension. FREE FLUID: None. US/US abdomen comp w elastography IMPRESSION: 1. Impression: Echogenic liver probably representing fatty infiltration. Bilateral renal stones. Limited visualization of the pancreas, aorta and IVC. 2. Liver elastography: Limited due to sampling error. REFERENCE: Society of Radiologists in Ultrasound Liver Stiffness Thresholds (2019): LIVER STIFFNESS THRESHOLDS: *Liver Stiffness equal or less than 1.3 m/s: High probability of being normal. *Liver Stiffness less than 1.7 m/s: In the absence of other known clinical signs, rules out compensated advanced chronic liver disease. *Liver Stiffness 1.7-2.1 m/s: Suggestive of compensated advanced chronic liver disease but need further test for confirmation. *Liver Stiffness over 2.1 m/s: Rules in compensated advanced chronic liver disease. *Liver Stiffness over 2.4 m/s: Suggestive of clinically significant portal hypertension. QUALITY OF DATA SET: *IQR/Median value equal or less than 0.15 implies a quality data set. *IQR/Median value over 0.15 implies a poor quality data set. SIGNIFICANT CHANGE FROM PRIOR EXAM: Significant change if liver stiffness measurement is 10% or greater from prior exam. OTHER CONSIDERATIONS: The stage of liver fibrosis may be overestimated in the setting of acute hepatitis, liver inflammation, elevated liver function tests, hepatic vascular congestion, obstructive cholestasis, non-fasting state, and infiltrative diseases such as amyloidosis and lymphoma. In some patients with NAFLD, the liver stiffness thresholds for compensated advanced chronic liver disease may be lower. In causes other than viral hepatitis and NAFLD, liver stiffness thresholds are not well established.
[2021-05-16 10:47] LABS: Hematocrit 45.5 % (42.0-52.0); Hemoglobin 15.6 g/dl (14.0-18.0); Mean Corpuscular HGB Conc 34.3 g/dl (31.0-36.0); Mean Corpuscular Hemoglobin 29.2 pg (27.0-33.0); Mean Platelet Volume 8.8 fL (9.4-12.4); Platelet Count 245 X10*3/uL (160-400); Red Blood Count 5.35 X10*6/uL (4.60-5.80); Red Cell Distribution Width 12.7 % (11.0-16.0); White Blood Count 5.8 X10*3/uL (4.8-10.8)
[2021-05-16 10:59] LABS: Estimated Average Glucose 105 mg/dL; Hemoglobin A1c % 5.3 %
[2021-05-16 11:16] LABS: Alanine Aminotransferase 57 U/L (0-40); Albumin Level 4.6 g/dL (3.5-5.0); Alkaline Phosphatase 64 U/L (39-117); Anion Gap 12 (12-20); Aspartate Amino Transferase 35 U/L (5-37); Bilirubin Total 0.6 mg/dL (0.0-1.0); Blood Urea Nitrogen 13 mg/dL (9-16); C Reactive Protein 0.27 mg/dL (< or = 0.50); Calcium 9.6 mg/dL (8.4-10.2); Carbon Dioxide 29 mmol/L (22-29); Chloride 104 mmol/L (96-108); Cholesterol 187 mg/dL; Estimated Glomerular Filt Rate > 60; Glucose Fasting 85 mg/dL (60-99); HDL Cholesterol 46 mg/dL; LDL Cholesterol Calculated 90 mg/dl; Potassium 4.5 mmol/L (3.3-5.1); Sodium 140 mmol/L (135-145); Total Protein 7.2 g/dL (6.5-8.0); Triglycerides 255 mg/dL
[2021-05-16 11:20] LABS: Alanine Aminotransferase 56 U/L (0-40); Albumin Level 4.5 g/dL (3.5-5.0); Alkaline Phosphatase 65 U/L (39-117); Anion Gap 12 (12-20); Aspartate Amino Transferase 35 U/L (5-37); Bilirubin Total 0.6 mg/dL (0.0-1.0); Blood Urea Nitrogen 13 mg/dL (9-16); Calcium 9.6 mg/dL (8.4-10.2); Carbon Dioxide 30 mmol/L (22-29); Chloride 103 mmol/L (96-108); Estimated Glomerular Filt Rate > 60; Glucose Random 86 mg/dL (60-115); Potassium 4.6 mmol/L (3.3-5.1); Sodium 140 mmol/L (135-145); Total Protein 7.1 g/dL (6.5-8.0)
[2021-05-16 11:29] LABS: Gamma Glutamyl Transpeptidase 38 U/L (11-51)
[2021-05-16 11:37] LABS: HBS Num1 10.66 mIU/mL (0-7.99); HBc Num1 0.06 S/CO (0.00-0.79); HBsAGNum1 0.13 S/CO (0.00-0.99); HIV AB/AG Nonreactive (Nonreactive); HIV Num 1 0.05 S/CO (0.00-0.99); Hepatitis B Core Antibody Nonreactive (Nonreactive); Hepatitis B Surface Antigen Negative (Negative); ~HepC Num1 0.06 S/CO (0.00-0.79); ~Hepatitis C Antibody Nonreactive (Nonreactive)
[2021-05-16 11:38] LABS: Ferritin 210 ng/mL (20-250)
[2021-05-16 13:03] LABS: HBS Num2 9.72 mIU/mL (0-7.99); HBS Num3 9.38 mIU/mL (0-7.99); ~Hepatitis B Surface Antibody GRAYZONE (Nonreactive)
[2021-05-17 12:11] LABS: Anti Nuclear Antibody Screen NEGATIVE (NEGATIVE)
[2021-05-17 17:11] LABS: Ceruloplasmin 25 mg/dL (18-36)
[2021-05-17 19:22] LABS: Lutenizing Hormone 2.2 mIU/mL (1.6-15.2)
[2021-05-18 09:18] LABS: Hepatitis A Antibody IgM 0.13 Index (0-0.79); ~Hepatitis A Antibody IgM Nonreactive (Nonreactive)
[2021-05-18 14:12] LABS: Mitochondrial Antibodies NEGATIVE (NEGATIVE)
[2021-05-18 20:17] LABS: TS Negative Control Passed; TS Panel A 0; TS Panel B 0; TS Positive Control Passed; TSpotTB Negative (Negative)
[2021-05-19 20:06] LABS: Estradiol Ultra Sensitive 50 pg/mL (< OR = 29)
[2021-05-20 23:42] LABS: Estrone 79 pg/mL (< OR = 68)
[2021-05-20 23:56] LABS: Smooth Muscle Antibody <20 U (<20)
[2021-05-21 14:26] LABS: Testosterone, Free 43.8 pg/mL (35.0-155.0); Testosterone, Total 286 ng/dL (250-1100)
== END 2021-05-16 08:43 | disposition home or self-care (01) ==
LOC: HO.US 08:42
PROVIDERS: Physician Assistant; PCP Nurse Practitioner Family; Referring Provider Internal Medicine; Visit Provider Nurse Practitioner Family
DX: Z11.1 Encounter for screening for respiratory tuberculosis (principal); I10 Essential (primary) hypertension; R79.89 Other specified abnormal findings of blood chemistry; R74.8 Abnormal levels of other serum enzymes; K58.9 Irritable bowel syndrome, unspecified; E78.2 Mixed hyperlipidemia; Z11.4 Encounter for screening for human immunodeficiency virus [HIV]
CPT/HCPCS: 36415; 76705; 76981; 80053; 80061; 82105; 82390; 82670; 82679; 82728; 82977; 83001; 83002; 83036; 84402; 84403; 84443; 85027; 86038; 86039; 86140; 86255; 86256; 86481; 86704; 86706; 86709; 86803; 87340; 87389

== ENCOUNTER → 2021-06-06 09:15 | Outpatient (BNVA) | payer BC, SELFPAY | PROVIDERS: Visit Provider Nurse Practitioner Family ==

== ENCOUNTER → 2021-07-13 10:26 | Outpatient (BNVA) | payer BC, SELFPAY | PROVIDERS: Visit Provider Internal Medicine ==

== ENCOUNTER 2021-07-14 08:31 | Outpatient (REF) | payer BC, SELFPAY ==
[2021-07-15 07:02] LABS: HCG Tumor Marker <3 mIU/mL (<5)
[2021-07-15 09:56] LABS: Sex Hormone Binding Globulin 26 nmol/L (22-77)
[2021-07-20 13:57] LABS: Testosterone, Free 74.9 pg/mL (35.0-155.0); Testosterone, Total 392 ng/dL (250-1100)
[2021-07-21 18:01] LABS: Estrogen 287.1 pg/mL (60-190)
[2021-07-23 01:52] LABS: Estradiol Free 1.05 pg/mL; Estradiol, Ultrasensitive 43 pg/mL (< OR = 29)
== END 2021-07-14 08:32 | disposition home or self-care (01) ==
LOC: HO.LAB 08:31
PROVIDERS: PCP Physician Assistant; Visit Provider Internal Medicine
DX: R79.89 Other specified abnormal findings of blood chemistry (principal)
CPT/HCPCS: 36415; 82670; 82672; 82681; 84270; 84402; 84403; 84702

== ENCOUNTER → 2021-09-14 09:11 | Outpatient (BNVA) | payer BC, SELFPAY | PROVIDERS: PCP Physician Assistant; Visit Provider Internal Medicine ==

== ENCOUNTER 2021-10-14 15:34 | Outpatient (REF) | payer BC, SELFPAY ==
--- NOTE | ~2021-10-14 | US_ITS ---
EXAMINATION: US RETROPERITONEAL LIMITED (RENAL ONLY) CLINICAL INFORMATION: Calculus of kidney. COMPARISON: Ultrasound abdomen complete 05/16/2021. Renal ultrasound 05/10/2021. X-ray KUB 04/20/2021. CT abdomen and pelvis 06/09/2020. TECHNIQUE: Real-time imaging of the kidneys. FINDINGS: RIGHT KIDNEY: 11.5 x 5.5 x 5.7 cm (SAG x AP x TRV). The kidney is normal in size, contour, and echogenicity. Renal cortical thickness is normal. No focal parenchymal lesions or hydronephrosis. At the upper pole, a 4 mm nonobstructing calculus is seen, with twinkle artifact. At the lower pole, an 8 mm nonobstructing calculus is seen, with twinkle artifact and shadowing. LEFT KIDNEY: 13.1 x 6.2 x 5.1 cm (SAG x AP x TRV). The kidney is normal in size, contour, and echogenicity. Renal cortical thickness is normal. No calculi or focal parenchymal lesions. No hydronephrosis. US/US renal BI IMPRESSION: Nonobstructing right renal calculi are seen. No left renal calculus is seen. There is no hydronephrosis noted bilaterally.
== END 2021-10-14 15:35 | disposition home or self-care (01) ==
LOC: HO.US 15:34
PROVIDERS: PCP Physician Assistant
DX: N20.0 Calculus of kidney (principal)
CPT/HCPCS: 76775; 99214

== ENCOUNTER 2021-11-22 07:58 | Outpatient (REF) | payer BC, SELFPAY ==
[2021-11-22 08:54] LABS: Hematocrit 47.4 % (42.0-52.0); Hemoglobin 16.3 g/dl (14.0-18.0); Mean Corpuscular HGB Conc 34.4 g/dl (31.0-36.0); Mean Corpuscular Hemoglobin 29.4 pg (27.0-33.0); Mean Corpuscular Volume 85.4 fL (80.0-98.0); Platelet Count 239 X10*3/uL (160-400); Red Blood Count 5.55 X10*6/uL (4.60-5.80); Red Cell Distribution Width 12.6 % (11.0-16.0); White Blood Count 5.5 X10*3/uL (4.8-10.8)
[2021-11-22 09:33] LABS: Alanine Aminotransferase 46 U/L (0-40); Albumin Level 4.5 g/dL (3.5-5.0); Alkaline Phosphatase 54 U/L (39-117); Anion Gap 12 (12-20); Aspartate Amino Transferase 34 U/L (5-37); Bilirubin Total 0.6 mg/dL (0.0-1.0); Blood Urea Nitrogen 14 mg/dL (9-16); Calcium 9.8 mg/dL (8.4-10.2); Carbon Dioxide 28 mmol/L (22-29); Chloride 103 mmol/L (96-108); Cholesterol 153 mg/dL; Estimated Glomerular Filt Rate > 60; Glucose Fasting 105 mg/dL (60-99); HDL Cholesterol 46 mg/dL; LDL Cholesterol Calculated 83 mg/dl; Potassium 5.1 mmol/L (3.3-5.1); Sodium 138 mmol/L (135-145); Total Protein 7.4 g/dL (6.5-8.0); Triglycerides 122 mg/dL
[2021-11-22 09:57] LABS: Prostate Specific Antigen Scr 1.23 ng/mL (<0.05-4.0); TSH reflex Free T4 1.38 uIU/mL (0.32-4.0)
[2021-11-22 11:17] LABS: Creatinine Urine 101.18 mg/dL; Microalbum/Creatinine Ratio Ur 4.9 ug/mg cr
[2021-11-24 07:02] LABS: Sex Hormone Binding Globulin 30 nmol/L (22-77)
[2021-11-24 12:21] LABS: Alpha Fetoprotein 2.7 ng/mL (<6.1)
[2021-11-28 14:56] LABS: Testosterone, Free 39.6 pg/mL (35.0-155.0); Testosterone, Total 257 ng/dL (250-1100)
[2021-12-03 04:36] LABS: Estradiol Free 0.84 pg/mL; Estradiol, Ultrasensitive 38 pg/mL (< OR = 29)
== END 2021-11-22 07:59 | disposition home or self-care (01) ==
LOC: HO.LAB 07:58
PROVIDERS: Absent Provider Physician Assistant; PCP Physician Assistant; Visit Provider Internal Medicine
DX: Z12.5 Encounter for screening for malignant neoplasm of prostate (principal); N20.0 Calculus of kidney; E66.09 Other obesity due to excess calories; Z68.30 Body mass index [BMI] 30.0-30.9, adult; E78.2 Mixed hyperlipidemia; I10 Essential (primary) hypertension; R79.89 Other specified abnormal findings of blood chemistry
CPT/HCPCS: 36415; 80053; 80061; 82043; 82105; 82670; 82681; 84153; 84270; 84402; 84403; 84443; 85027

== ENCOUNTER → 2021-12-20 13:12 | Outpatient (BNVA) | payer BC, SELFPAY | PROVIDERS: PCP Physician Assistant; Visit Provider Internal Medicine | DX: R74.01 Elevation of levels of liver transaminase levels (principal) ==

== ENCOUNTER 2022-05-05 07:31 | Outpatient (REF) | payer BC, SELFPAY ==
[2022-05-05 09:01] LABS: Hematocrit 47.1 % (42.0-52.0); Mean Corpuscular Hemoglobin 29.2 pg (27.0-33.0); Mean Corpuscular Volume 85.9 fL (80.0-98.0); Mean Platelet Volume 8.8 fL (9.4-12.4); Platelet Count 269 X10*3/uL (160-400); Red Blood Count 5.48 X10*6/uL (4.60-5.80); Red Cell Distribution Width 12.6 % (11.0-16.0); White Blood Count 5.6 X10*3/uL (4.8-10.8)
[2022-05-05 09:36] LABS: Alanine Aminotransferase 24 U/L (0-40); Albumin Level 4.7 g/dL (3.5-5.0); Alkaline Phosphatase 51 U/L (39-117); Anion Gap 17 (12-20); Aspartate Amino Transferase 22 U/L (5-37); Bilirubin Total 0.6 mg/dL (0.0-1.0); Blood Urea Nitrogen 18 mg/dL (9-16); Calcium 10.1 mg/dL (8.4-10.2); Carbon Dioxide 26 mmol/L (22-29); Chloride 102 mmol/L (96-108); Cholesterol 200 mg/dL; Estimated Glomerular Filt Rate > 60; Glucose Fasting 100 mg/dL (60-99); HDL Cholesterol 55 mg/dL; LDL Cholesterol Calculated 116 mg/dl; Potassium 4.6 mmol/L (3.3-5.1); Sodium 140 mmol/L (135-145); Total Protein 7.5 g/dL (6.5-8.0); Triglycerides 148 mg/dL
[2022-05-05 09:48] LABS: Prostate Specific Antigen Scr 1.22 ng/mL (<0.05-4.0); TSH reflex Free T4 1.14 uIU/mL (0.32-4.0)
[2022-05-05 09:59] LABS: Creatinine Urine 103.85 mg/dL; Microalbum/Creatinine Ratio Ur 7.7 ug/mg cr
[2022-05-07 18:02] LABS: Sex Hormone Binding Globulin 25 nmol/L (22-77)
[2022-05-10 15:56] LABS: Testosterone, Free 75.6 pg/mL (35.0-155.0); Testosterone, Total 432 ng/dL (250-1100)
[2022-05-11 22:46] LABS: Estradiol Ultra Sensitive 38 pg/mL (< OR = 29)
== END 2022-05-05 07:32 | disposition home or self-care (01) ==
LOC: HO.LAB 07:31
PROVIDERS: Absent Provider Internal Medicine; PCP Physician Assistant; Visit Provider Physician Assistant
DX: Z12.5 Encounter for screening for malignant neoplasm of prostate (principal); I10 Essential (primary) hypertension; R79.89 Other specified abnormal findings of blood chemistry
CPT/HCPCS: 36415; 80053; 80061; 82043; 82670; 84153; 84270; 84402; 84403; 84443; 85027

== ENCOUNTER 2022-06-09 10:36 | Outpatient (REF) | payer BC, SELFPAY ==
[2022-06-12 00:10] LABS: TS Negative Control Passed; TS Panel A 0; TS Panel B 0; TS Positive Control Passed; TSpotTB Negative (Negative)
== END 2022-06-09 10:37 | disposition home or self-care (01) ==
LOC: HO.LAB 10:36
PROVIDERS: PCP Physician Assistant; Visit Provider Physician Assistant
DX: Z11.1 Encounter for screening for respiratory tuberculosis (principal)
CPT/HCPCS: 36415; 86481

== ENCOUNTER → 2022-08-09 14:53 | Outpatient (BNVA) | payer BC, SELFPAY | PROVIDERS: PCP Physician Assistant; Visit Provider Internal Medicine | DX: Z13.89 Encounter for screening for other disorder (principal) ==

== ENCOUNTER → 2022-08-23 15:40 | Outpatient (BNVA) | payer BC, SELFPAY | PROVIDERS: PCP Physician Assistant; Visit Provider Urology | DX: Z13.89 Encounter for screening for other disorder (principal) ==